=== PATIENT | female | born 1970 | race Caucasian/White ===

== ENCOUNTER 2017-07-31 13:20 | Outpatient (CLI) | payer BC ==
--- NOTE | 2017-07-31 16:18 | CT ---
CT ABDOMEN AND PELVIS WITHOUT IV CONTRAST: Date: 07-31-17 History: Right renal calculus. Patient has right sided abdominal pain and hematuria. Comparison: None available. FINDINGS: No renal or ureteral calculi are seen bilaterally. There is no evidence of hydronephrosis. The lung bases, liver, spleen, pancreas, bilateral adrenal glands, kidneys, and urinary bladder demo nstrate a grossly normal nonenhanced CT appearance. There is a lobulated appearance of the uterus likely related to multiple uterine fibroids. Minimal vascular calcifications are seen in the abdomen aorta. The appendix is normal in caliber without CT evidence of appendicitis. IMPRESSION: 1. No renal or ureteral calculi are seen bilaterally. 2. Lobulated appearance of the uterus probably related to multiple uterine fibroids. POS: ADELSO
== END 2017-07-31 13:21 | disposition home or self-care (01) ==
LOC: CT 13:20
PROVIDERS: ATTEND Family Medicine
DX: N20.0 Calculus of kidney (principal)
CPT/HCPCS: 74176

== ENCOUNTER 2017-09-12 06:50 | Outpatient (CLI) | payer BC | END 2017-09-12 06:51 | disposition home or self-care (01) | LOC: BICMRI 06:50 | PROVIDERS: ATTEND Family Medicine | DX: M51.36 Other intervertebral disc degeneration, lumbar region (principal) | CPT/HCPCS: 72148 ==

== ENCOUNTER 2019-01-21 12:09 | Outpatient (CLI) | payer BC | END 2019-01-21 12:10 | disposition home or self-care (01) | LOC: ULT 12:09 | PROVIDERS: ATTEND Family Medicine | DX: R06.02 Shortness of breath (principal); R00.0 Tachycardia, unspecified | CPT/HCPCS: 93306 ==

== ENCOUNTER 2020-03-02 07:53 | Outpatient (CLI) | payer BC ==
--- NOTE | 2020-03-02 08:36 | MMO ---
Bilateral MAMMO Bilat Screen [facility]. CLINICAL HISTORY: Patient is 49 years old and is seen for screening. The patient has no family history of breast cancer. The patient has no personal history of cancer. VIEWS: The views performed were: bilateral craniocaudal with tomosynthesis and bilateral mediolateral oblique with tomosynthesis. FILMS COMPARED: The present examination has been compared to prior imaging studies performed at [facility] on 04/26/2017 and 05/08/2017. This study has been interpreted with the assistance of computer-aided detection. MAMMOGRAM FINDINGS: There are scattered fibroglandular densities. There are no suspicious masses, suspicious calcifications, or new areas of architectural distortion. IMPRESSION: THERE IS NO MAMMOGRAPHIC EVIDENCE OF MALIGNANCY. A ROUTINE FOLLOW-UP MAMMOGRAM IN 1 YEAR IS RECOMMENDED. THE RESULTS OF THIS EXAM WERE SENT TO THE PATIENT. ACR BI-RADS Category 1 - Negative MAMMOGRAPHY NOTE: 1. A negative mammogram report should not delay a biopsy if a dominant of clinically suspicious mass is present. 2. Approximately 10% to 15% of breast cancers are not detected by mammography. 3. Adenosis and dense breasts may obscure an underlying neoplasm. Reported by: JERI TURK MD Electonically Signed: [id number]
== END 2020-03-02 07:54 | disposition home or self-care (01) ==
LOC: BICMAMMO 07:53
PROVIDERS: ATTEND Family Medicine
DX: Z12.31 Encounter for screening mammogram for malignant neoplasm of breast (principal)
CPT/HCPCS: 77063; 77067